=== PATIENT | female | born 1940 | race Two or more races ===

== ENCOUNTER 2023-06-25 11:20 | Day surgery (SDC) | payer OTHER ==
[2023-06-23 07:47] LABS: INR 1.88; PARTIAL THROMBOPLASTIN TIME 35.6 SECONDS (22.0-34.0)
[2023-06-23 07:49] LABS: PROTHROMBIN TIME 18.8 SECONDS (9.0-11.5)
== END 2023-06-25 14:10 | disposition home or self-care (01) ==
LOC: AMB-ENDOS 11:20
PROVIDERS: ATTEND Colon & Rectal Surgery
DX: R10.9 Unspecified abdominal pain (principal); Z91.041 Radiographic dye allergy status; Z88.0 Allergy status to penicillin; Z20.822 Contact with and (suspected) exposure to COVID-19; K64.8 Other hemorrhoids

== ENCOUNTER 2023-06-28 10:05 | Inpatient (IN) | payer OTHER ==
[~2023-06-28] VITALS: Ht 162.6 cm; Wt 63.5 kg
[2023-06-28] MEDS ORDERED: INSULIN SYRING1 EA27 (10:23)
[2023-06-28] MEDS ORDERED: LOSARTAN POTASS25 MG (10:23)
[2023-06-28] MEDS ORDERED: SIMVASTATIN10 MG (10:23)
[2023-06-28] MEDS ORDERED: SYNTHROID75 MCG (10:24)
[2023-06-28 13:12] LABS: INR 1.07; PARTIAL THROMBOPLASTIN TIME 27.3 SECONDS (22.0-34.0); PROTHROMBIN TIME 11.2 SECONDS (9.0-11.5)
[2023-06-28 13:21] LABS: PH,URINE 7.5 (5.0-8.0); URINE APPEARANCE Clear; URINE BILIRRUBIN Negative (NEGATIVE); URINE BLOOD Negative; URINE COLOR Yellow; URINE GLUCOSE Negative (NEGATIVE); URINE LEUKOCYTE Small; URINE NITRATE Negative; URINE PROTEIN Trace (NEGATIVE); URINE UROBILINOGEN 0.2 E.U./dl
[2023-06-28 13:25] LABS: URINE BACTERIA 103.1 uL (0.0-1933); URINE EPITHELIAL CELLS 4.9 uL (0.0-38.8); URINE WBC 42.3 uL (0.0-23.2)
[2023-06-28 13:50] LABS: URINE RBC 1.4 uL (0.0-20.8)
[2023-06-28 14:35] LABS: CALCIUM 8.9 mg/dL (8.5-10.1); CREATININE SERUM 0.84 mg/dL (0.55-1.02); GFR 64.91; POTASSIUM 3.43 mEq/L (3.5-5.1)
[2023-06-28 16:35] LABS: HEMATOCRIT 34.7 % (36.0-45.00); HEMOGLOBIN 11.4 g/dL (12.0-15.00); MEAN CELL VOLUME 88.4 fL (80.00-100.00); MEAN CORPUSCULAR HEMOGLOBIN 29.1 pg (27.00-32.0); MEAN CORPUSCULAR HGB CONC 32.9 g/dl (32.0-36.0); RED BLOOD COUNT 3.92 M/uL (4.00-6.00); RED CELL DISTRIBUTION WIDTH 19.2 % (11.5-14.5)
[2023-06-28 16:37] LABS: ALBUMIN 3.4 gm/dL (3.4-5.0); BILIRUBIN TOTAL 0.38 mg/dL (0.3-1.2); CALCIUM 9.2 mg/dL (8.5-10.1); CREATININE SERUM 0.84 mg/dL (0.55-1.02); GFR 64.91; GLOBULINA 4.1 G/DL (2.4-3.5); PLATELET COUNT 66 K/uL (150-450); POTASSIUM 3.41 mEq/L (3.5-5.1); T4 TOTAL 10.91 UG/DL (4.8-13.9); TOTAL PROTEIN 7.5 gm/dL (6.4-8.2)
[2023-06-28 18:13] LABS: ABG PH 7.461 (7.35-7.45); ABG PO2 103.3 mmHg (80-100); ABG pCO2 29.5 mmHg (35-45); BASE EXCESS -1.9 mmol/l; SaO2 98.2 %
[2023-06-28 18:14] LABS: BICARBONATE 20.6 mmol/l (23-25); Tco2 21.5 mmol/l; allen test SATISFACTORY; o2 21 %; puncture site RADIAL RIGHT
[2023-06-29 08:09] LABS: COL EPI 87 SECONDS (82-175)
[2023-06-29 08:31] LABS: CALCIUM 8.7 mg/dL (8.5-10.1); CREATININE SERUM 0.8 mg/dL (0.55-1.02); GFR 68.67; MAGNESIUM 1.8 mg/dL (1.8-2.4); PHOSPHOROUS 3.4 mg/dL (2.5-4.9); POTASSIUM 3.72 mEq/L (3.5-5.1)
[2023-06-29] MEDS ORDERED: FUSION PLUS CA1 EACH (08:49)
[2023-06-29] MEDS ORDERED: FARXIGA10 MG (08:49)
[2023-06-29] MEDS ORDERED: CLONAZEPAM0.5 MG (08:49)
[2023-06-29] MEDS ORDERED: ISOSORBIDE MONO30 M2 (08:50)
[2023-06-29] MEDS ORDERED: WARFARIN SODIUM5 MG (08:50)
[2023-06-29] MEDS ORDERED: DOXAZOSIN MESYLA1 MG (08:50)
[2023-06-30 14:10] LABS: CALCIUM 8.7 mg/dL (8.5-10.1); CHOL HDL RATIO 2.2 (0-5.0); CREATININE SERUM 1.07 mg/dL (0.55-1.02); GFR 49.09; POTASSIUM 4.46 mEq/L (3.5-5.1)
[2023-07-02 00:05] LABS: RH POSITIVE
[2023-07-02 14:56] LABS: HEMATOCRIT 32.3 % (36.0-45.00); HEMOGLOBIN 10.4 g/dL (12.0-15.00); MEAN CELL VOLUME 88.9 fL (80.00-100.00); MEAN CORPUSCULAR HEMOGLOBIN 28.7 pg (27.00-32.0); MEAN CORPUSCULAR HGB CONC 32.2 g/dl (32.0-36.0); PLATELET COUNT 59 K/uL (150-450); RED BLOOD COUNT 3.63 M/uL (4.00-6.00); RED CELL DISTRIBUTION WIDTH 18.7 % (11.5-14.5)
[2023-07-02 15:26] LABS: ALBUMIN 2.7 gm/dL (3.4-5.0); CALCIUM 8.3 mg/dL (8.5-10.1); CREATININE SERUM 0.88 mg/dL (0.55-1.02); GFR 61.52; PHOSPHOROUS 3.1 mg/dL (2.5-4.9); POTASSIUM 3.62 mEq/L (3.5-5.1)
[2023-07-03 08:29] LABS: ALBUMIN 2.8 gm/dL (3.4-5.0); CALCIUM 8.1 mg/dL (8.5-10.1); CREATININE SERUM 0.96 mg/dL (0.55-1.02); GFR 55.64; MAGNESIUM 1.7 mg/dL (1.8-2.4); PHOSPHOROUS 3.8 mg/dL (2.5-4.9); POTASSIUM 4.61 mEq/L (3.5-5.1)
[2023-07-03 14:19] LABS: HEMATOCRIT 35.1 % (36.0-45.00); HEMOGLOBIN 11.3 g/dL (12.0-15.00); MEAN CELL VOLUME 88.8 fL (80.00-100.00); MEAN CORPUSCULAR HEMOGLOBIN 28.7 pg (27.00-32.0); MEAN CORPUSCULAR HGB CONC 32.3 g/dl (32.0-36.0); RED BLOOD COUNT 3.95 M/uL (4.00-6.00); RED CELL DISTRIBUTION WIDTH 18.8 % (11.5-14.5)
[2023-07-03 14:23] LABS: PLATELET COUNT 36 K/uL (150-450)
[2023-07-03 14:31] LABS: ABG PH 7.365 (7.35-7.45); ABG pCO2 36.6 mmHg (35-45)
[2023-07-03 14:32] LABS: BASE EXCESS -4.2 mmol/l; BICARBONATE 20.5 mmol/l (23-25); SaO2 94.9 %; Tco2 21.6 mmol/l; allen test SATISFACTORY; o2 21 %; puncture site RADIAL RIGHT
[2023-07-04 07:21] LABS: ALBUMIN 2.4 gm/dL (3.4-5.0); CALCIUM 8.1 mg/dL (8.5-10.1); CREATININE SERUM 1.22 mg/dL (0.55-1.02); GFR 42.2; MAGNESIUM 2.7 mg/dL (1.8-2.4); PHOSPHOROUS 3.5 mg/dL (2.5-4.9)
[2023-07-04 10:18] LABS: HEMATOCRIT 31.6 % (36.0-45.00); HEMOGLOBIN 10.4 g/dL (12.0-15.00); MEAN CELL VOLUME 87.1 fL (80.00-100.00); MEAN CORPUSCULAR HEMOGLOBIN 28.5 pg (27.00-32.0); MEAN CORPUSCULAR HGB CONC 32.7 g/dl (32.0-36.0); RED BLOOD COUNT 3.63 M/uL (4.00-6.00); RED CELL DISTRIBUTION WIDTH 19.1 % (11.5-14.5)
[2023-07-04 11:48] LABS: PLATELET COUNT 29 K/uL (150-450)
[2023-07-05 07:25] LABS: HEMOGLOBIN 10.2 g/dL (12.0-15.00); MEAN CELL VOLUME 87.3 fL (80.00-100.00); MEAN CORPUSCULAR HEMOGLOBIN 28.6 pg (27.00-32.0); MEAN CORPUSCULAR HGB CONC 32.7 g/dl (32.0-36.0); RED BLOOD COUNT 3.55 M/uL (4.00-6.00); RED CELL DISTRIBUTION WIDTH 19.3 % (11.5-14.5)
[2023-07-05 07:58] LABS: ALBUMIN 2.3 gm/dL (3.4-5.0); BILIRUBIN TOTAL 0.4 mg/dL (0.3-1.2); CALCIUM 8.2 mg/dL (8.5-10.1); CREATININE SERUM 0.89 mg/dL (0.55-1.02); GFR 60.72; MAGNESIUM 2.4 mg/dL (1.8-2.4); PHOSPHOROUS 2.5 mg/dL (2.5-4.9); POTASSIUM 3.72 mEq/L (3.5-5.1); TOTAL PROTEIN 5.3 gm/dL (6.4-8.2)
[2023-07-05 08:33] LABS: PLT IN CITRATE 107 K/uL (150-450)
[2023-07-05 08:38] LABS: PLATELET COUNT 25 K/uL (150-450)
[2023-07-06 12:07] LABS: PLT IN CITRATE 117 K/uL (150-450)
[2023-07-06 12:15] LABS: HEMATOCRIT 32.8 % (36.0-45.00); HEMOGLOBIN 10.9 g/dL (12.0-15.00); MEAN CELL VOLUME 86.1 fL (80.00-100.00); MEAN CORPUSCULAR HEMOGLOBIN 28.6 pg (27.00-32.0); MEAN CORPUSCULAR HGB CONC 33.2 g/dl (32.0-36.0); RED BLOOD COUNT 3.81 M/uL (4.00-6.00); RED CELL DISTRIBUTION WIDTH 18.5 % (11.5-14.5)
[2023-07-06 12:17] LABS: PLATELET COUNT 29 K/uL (150-450)
[2023-07-07 07:18] LABS: HEMOGLOBIN 11.5 g/dL (12.0-15.00); MEAN CELL VOLUME 86.1 fL (80.00-100.00); MEAN CORPUSCULAR HEMOGLOBIN 28.4 pg (27.00-32.0); RED BLOOD COUNT 4.06 M/uL (4.00-6.00); RED CELL DISTRIBUTION WIDTH 18.9 % (11.5-14.5)
[2023-07-07 07:26] LABS: CALCIUM 8.3 mg/dL (8.5-10.1); CREATININE SERUM 0.92 mg/dL (0.55-1.02); GFR 58.44; MAGNESIUM 1.9 mg/dL (1.8-2.4); PHOSPHOROUS 2.7 mg/dL (2.5-4.9); POTASSIUM 3.72 mEq/L (3.5-5.1)
[2023-07-07 07:47] LABS: PLT IN CITRATE 88 K/uL (150-450)
[2023-07-07 08:40] LABS: PLATELET COUNT 49 K/uL (150-450)
[2023-07-08 08:09] LABS: INR 1.09; PROTHROMBIN TIME 11.4 SECONDS (9.0-11.5)
[2023-07-09 06:30] LABS: HEMATOCRIT 32.7 % (36.0-45.00); HEMOGLOBIN 10.7 g/dL (12.0-15.00); MEAN CELL VOLUME 86.2 fL (80.00-100.00); MEAN CORPUSCULAR HEMOGLOBIN 28.2 pg (27.00-32.0); MEAN CORPUSCULAR HGB CONC 32.7 g/dl (32.0-36.0); RED CELL DISTRIBUTION WIDTH 18.5 % (11.5-14.5)
[2023-07-09 06:36] LABS: PLATELET COUNT 37 K/uL (150-450)
[2023-07-09 06:37] LABS: PLT IN CITRATE 127 K/uL (150-450)
[2023-07-09 07:16] LABS: INR 1.43; PROTHROMBIN TIME 14.6 SECONDS (9.0-11.5)
[2023-07-09 07:19] LABS: ALBUMIN 2.5 gm/dL (3.4-5.0); CALCIUM 8.3 mg/dL (8.5-10.1); CREATININE SERUM 0.77 mg/dL (0.55-1.02); GFR 71.77; MAGNESIUM 2.1 mg/dL (1.8-2.4); PHOSPHOROUS 2.8 mg/dL (2.5-4.9); POTASSIUM 3.7 mEq/L (3.5-5.1)
== END 2023-07-09 16:31 | disposition home or self-care (01) | DRG 330 ==
LOC: ER 10:05 → SEC-K 12:24 → SURG 12:24
PROVIDERS: Emergency Medicine; Internal Medicine; Internal Medicine Geriatric Medicine; ADMIT Colon & Rectal Surgery; ATTEND Colon & Rectal Surgery
PROC: BW21ZZZ Computerized Tomography (CT Scan) of Abdomen and Pelvis (ICD-10-PCS; 2023-06-28)
PROC: B24BYZZ Ultrasonography of Heart with Aorta using Other Contrast (ICD-10-PCS; 2023-06-28)
PROC: 0DJD8ZZ Inspection of Lower Intestinal Tract, Via Natural or Artificial Opening Endoscopic (ICD-10-PCS; 2023-06-29)
PROC: 07BC4ZX Excision of Pelvis Lymphatic, Percutaneous Endoscopic Approach, Diagnostic (ICD-10-PCS; 2023-07-02)
PROC: 0WQF4ZZ Repair Abdominal Wall, Percutaneous Endoscopic Approach (ICD-10-PCS; 2023-07-02)
PROC: 0DTF4ZZ Resection of Right Large Intestine, Percutaneous Endoscopic Approach (ICD-10-PCS; principal; 2023-07-02 08:00)
PROC: B54CZZZ Ultrasonography of Left Lower Extremity Veins (ICD-10-PCS; 2023-07-07)
DX: K63.89 Other specified diseases of intestine (principal); D68.59 Other primary thrombophilia; D69.6 Thrombocytopenia, unspecified; E11.9 Type 2 diabetes mellitus without complications; Z79.4 Long term (current) use of insulin; R59.0 Localized enlarged lymph nodes; I10 Essential (primary) hypertension; E03.9 Hypothyroidism, unspecified; I20.9 Angina pectoris, unspecified

== ENCOUNTER 2024-04-11 11:24 | Emergency (ER) | payer OTHER ==
[~2024-04-11] VITALS: Ht 162.6 cm; Wt 59.9 kg
[~2024-04-11 11:24] MED LIST: CLONAZEPAM0.5 MG; DOXAZOSIN MESYLA1 MG; FARXIGA10 MG; FUSION PLUS CA1 EACH; INSULIN SYRING1 EA27; ISOSORBIDE MONO30 M2; LOSARTAN POTASS25 MG; SIMVASTATIN10 MG; SYNTHROID75 MCG; WARFARIN SODIUM5 MG
[2024-04-11] MEDS ORDERED: 0.9 % SODIUM CHLORIDE 500 ML IV ONE (15:00)
[2024-04-11] MEDS ORDERED: FAMOTIDINE/PF 20 MG/2 ML VIAL IV ONE (15:00)
[2024-04-11] MEDS ORDERED: MEPERIDINE HCL/PF 25 MG/ML VIAL IM ONE (15:00)
[2024-04-11] MEDS ORDERED: ONDANSETRON HCL 2 MG/ML VIAL IV ONE (15:00)
[2024-04-11 15:39] LABS: HEMATOCRIT 35.3 % (36.0-45.00); HEMOGLOBIN 11.7 g/dL (12.0-15.00); MEAN CELL VOLUME 90.7 fL (80.00-100.00); MEAN CORPUSCULAR HEMOGLOBIN 30.2 pg (27.00-32.0); MEAN CORPUSCULAR HGB CONC 33.3 g/dl (32.0-36.0); RED BLOOD COUNT 3.89 M/uL (4.00-6.00); RED CELL DISTRIBUTION WIDTH 18.3 % (11.5-14.5)
[2024-04-11 15:40] LABS: PLATELET COUNT 72 K/uL (150-450)
[2024-04-11 15:51] LABS: INR 1.24; PARTIAL THROMBOPLASTIN TIME 28.8 SECONDS (22.0-34.0); PROTHROMBIN TIME 13.3 SECONDS (9.0-11.5)
[2024-04-11 16:07] LABS: ALBUMIN 3.3 gm/dL (3.4-5.0); BILIRUBIN TOTAL 0.23 mg/dL (0.3-1.2); CREATININE SERUM 0.99 mg/dL (0.55-1.02); GFR 53.57; GLOBULINA 4.4 G/DL (2.4-3.5); POTASSIUM 4.18 mEq/L (3.5-5.1); TOTAL PROTEIN 7.7 gm/dL (6.4-8.2)
[2024-04-11 16:13] LABS: PH,URINE 6.5 (5.0-8.0); URINE APPEARANCE Clear; URINE BILIRRUBIN Negative (NEGATIVE); URINE BLOOD Negative; URINE COLOR Yellow; URINE KETONE Negative (NEGATIVE); URINE LEUKOCYTE Negative; URINE NITRATE Negative; URINE PROTEIN Negative (NEGATIVE); URINE UROBILINOGEN 0.2 E.U./dl
[2024-04-11 16:17] LABS: URINE BACTERIA 7.5 uL (0.0-1933); URINE EPITHELIAL CELLS 3.8 uL (0.0-38.8); URINE RBC 2.2 uL (0.0-20.8); URINE WBC 7.5 uL (0.0-23.2)
[2024-04-11 16:27] LABS: URINE GLUCOSE >=1000 MG/DL (NEGATIVE)
[2024-04-11] MEDS ORDERED: PERCOGESIC EXT1 EACH PO (21:26)
== END 2024-04-12 00:28 | disposition home or self-care (01) ==
LOC: ER 11:26
PROVIDERS: Nurse Practitioner Family
DX: R10.9 Unspecified abdominal pain (principal); Z88.0 Allergy status to penicillin; Z85.038 Personal history of other malignant neoplasm of large intestine; E78.00 Pure hypercholesterolemia, unspecified; E03.8 Other specified hypothyroidism; I12.9 Hypertensive chronic kidney disease with stage 1 through stage 4 chronic kidney disease, or unspecified chronic kidney disease; N18.2 Chronic kidney disease, stage 2 (mild); Z86.718 Personal history of other venous thrombosis and embolism; Z91.041 Radiographic dye allergy status; K57.30 Diverticulosis of large intestine without perforation or abscess without bleeding; M48.54XA Collapsed vertebra, not elsewhere classified, thoracic region, initial encounter for fracture
CPT/HCPCS: 36415; 74176; 96365; 96366; 99284; J7042

== ENCOUNTER 2024-09-06 06:10 | Day surgery (SDC) | payer OTHER ==
[~2024-09-06 06:10] MED LIST changes: +PERCOGESIC EXT1 EACH PO
[2024-09-06 07:09] LABS: INR 1.42; PARTIAL THROMBOPLASTIN TIME 30.8 SECONDS (22.0-34.0)
[2024-09-06 07:21] LABS: PROTHROMBIN TIME 15.1 SECONDS (9.0-11.5)
[2024-09-06] MEDS ORDERED: FLUMAZENIL 0.5 MG/5 ML ML IV STA (09:11)
[2024-09-06] MEDS ORDERED: ONDANSETRON HCL 2 MG/ML VIAL IV ONE (09:15)
[2024-09-06] MEDS ORDERED: fentaNYL CITRATE 50 MCG/ML AMPUL IV PUSH ONE (09:15)
[2024-09-06] MEDS ORDERED: DIPHENHYDRAMINE HCL 50 MG/ML VIAL 1ML IV ONE (09:15)
[2024-09-06] MEDS ORDERED: MIDAZOLAM HCL 2 MG/2 ML VIAL IV ONE (09:15)
[2024-09-06] MEDS ORDERED: ENALAPRILAT DIHYDRATE 2.5 MG/2 ML VIAL IV ONE (10:00)
== END 2024-09-06 12:35 | disposition home or self-care (01) ==
LOC: AMB-ENDOS 06:10
PROVIDERS: ATTEND Colon & Rectal Surgery
DX: C18.2 Malignant neoplasm of ascending colon (principal); Z12.11 Encounter for screening for malignant neoplasm of colon; Z88.0 Allergy status to penicillin; Z91.041 Radiographic dye allergy status